=== PATIENT | female | born 1955 | race Caucasian/White ===

== ENCOUNTER → 2016-11-07 | Outpatient (CLI) | payer MEDICARE ==
[~2016-11-07] MED LIST: ASPIRIN CHEWABL81 MG PO; DEXILANT60 MG PO; DOK250 MG PO; FENOFIBRATE145 MG PO; HYDROCHLOROTHIA25 MG PO; KLONOPIN TAB 00.5 MG PO; LIPITOR40 MG PO; METFORMIN HCL500 MG PO; NORVASC 5 MG TAB5 MG PO; PLAVIX 75 MG TA75 MG PO; VITAMIN D250000 UNIT PO
== END ==
LOC: MAMO 13:05
DX: Z12.31 Encounter for screening mammogram for malignant neoplasm of breast (principal)
CPT/HCPCS: G0202

== ENCOUNTER → 2016-11-24 | Day surgery (SDC) | payer MEDICARE, SELFPAY | END | disposition home or self-care (01) | LOC: OR 06:58 | PROVIDERS: Internal Medicine Gastroenterology | PROC: 0DBP8ZZ Excision of Rectum, Via Natural or Artificial Opening Endoscopic (ICD-10-PCS; 2016-11-24) | PROC: 0DBE8ZX Excision of Large Intestine, Via Natural or Artificial Opening Endoscopic, Diagnostic (ICD-10-PCS; principal; 2016-11-24 10:30) | DX: Z12.11 Encounter for screening for malignant neoplasm of colon (principal); K62.1 Rectal polyp; K57.30 Diverticulosis of large intestine without perforation or abscess without bleeding; Z86.010 Personal history of colon polyps; I10 Essential (primary) hypertension; E11.9 Type 2 diabetes mellitus without complications; J44.9 Chronic obstructive pulmonary disease, unspecified; F17.210 Nicotine dependence, cigarettes, uncomplicated; Z90.49 Acquired absence of other specified parts of digestive tract; Z79.52 Long term (current) use of systemic steroids; Z79.82 Long term (current) use of aspirin; Z79.899 Other long term (current) drug therapy; Z90.710 Acquired absence of both cervix and uterus; Z95.5 Presence of coronary angioplasty implant and graft | CPT/HCPCS: 82962; J7030 ==

== ENCOUNTER → 2017-01-12 | Outpatient (CLI) | payer MEDICARE ==
[2017-01-12 10:29] LABS: HEMOGLOBIN 14.3 gm/dl (12.3-15.3); RED BLOOD COUNT 4.87 M/UL (4.00-5.10); WHITE BLOOD COUNT 17.8 K/UL (4.5-11.0)
[2017-01-12 10:39] LABS: BUN/CREATININE RATIO 27 (0-10)
== END ==
LOC: LAB 09:25
PROVIDERS: Family Medicine
DX: E11.9 Type 2 diabetes mellitus without complications (principal); R53.83 Other fatigue; E78.5 Hyperlipidemia, unspecified; I10 Essential (primary) hypertension; D51.3 Other dietary vitamin B12 deficiency anemia; D50.0 Iron deficiency anemia secondary to blood loss (chronic); E55.9 Vitamin D deficiency, unspecified; E87.5 Hyperkalemia
CPT/HCPCS: 36415; 80053; 82607; 82728; 82746; 83036; 83540; 83550; 84681; 85027

== ENCOUNTER → 2017-02-15 | Outpatient (CLI) | payer MEDICARE, SELFPAY | LOC: HEART 5 08:39 | DX: J44.9 Chronic obstructive pulmonary disease, unspecified (principal); R06.02 Shortness of breath | CPT/HCPCS: 94010 ==

== ENCOUNTER → 2020-10-19 | Outpatient (CLI) | payer MEDICARE ==
[~2020-10-19] MED LIST changes: +CETIRIZINE HCL10 MG PO; +FLOMAX0.4 MG PO; +K-DUR TAB 20 M20 MEQ PO; +MACROBID 100 M100 MG PO; +NORCO 5-325 TA1 EACH PO; +PREMARIN VAG CR30 GM EXT; +PYRIDIUM100 MG PO; +RESTASIS 0.05%1 EACH OD
[2020-10-19 10:47] LABS: HEMOGLOBIN 14.5 gm/dl (12.3-15.3); RED BLOOD COUNT 4.8 M/UL (4.00-5.10); WHITE BLOOD COUNT 11.1 K/UL (4.5-11.0)
[2020-10-19 11:16] LABS: BUN/CREATININE RATIO 18 (0-10)
== END ==
LOC: LAB 09:10
PROVIDERS: Family Medicine
DX: E78.5 Hyperlipidemia, unspecified (principal); E55.9 Vitamin D deficiency, unspecified; I10 Essential (primary) hypertension
CPT/HCPCS: 80053; 80061; 84439; 84443; 85027

== ENCOUNTER → 2020-11-19 | Outpatient (CLI) | payer MEDICARE, OTHER | LOC: LAB 12:43 | DX: L50.9 Urticaria, unspecified (principal); Z91.018 Allergy to other foods | CPT/HCPCS: 36415; 83655 ==

== ENCOUNTER → 2020-12-28 | Outpatient (CLI) | payer MEDICARE, OTHER | LOC: MAMO 12-25 10:00 → US 12-25 10:30 → MAMO 13:49 | DX: Z12.31 Encounter for screening mammogram for malignant neoplasm of breast (principal); R92.8 Other abnormal and inconclusive findings on diagnostic imaging of breast | CPT/HCPCS: 77063; 77067 ==

== ENCOUNTER → 2021-02-12 | Outpatient (CLI) | payer MEDICARE ==
[2021-02-12 09:51] LABS: HEMOGLOBIN 14.8 gm/dl (12.3-15.3); RED BLOOD COUNT 4.79 M/UL (4.00-5.10); WHITE BLOOD COUNT 14.9 K/UL (4.5-11.0)
[2021-02-14 20:10] LABS: HEMATOCRIT 41.8 % (34.0-46.6)
== END ==
LOC: LAB 08:43
PROVIDERS: Family Medicine
DX: R79.89 Other specified abnormal findings of blood chemistry (principal); N63.0 Unspecified lump in unspecified breast; R74.02 Elevation of levels of lactic acid dehydrogenase [LDH]; C85.90 Non-Hodgkin lymphoma, unspecified, unspecified site
CPT/HCPCS: 36415; 82728; 82747; 83540; 83550; 83615; 83921; 85025; 86900; 86901

== ENCOUNTER → 2021-06-25 | Outpatient (CLI) | payer MEDICARE | LOC: KOH-I 14:52 | DX: J44.9 Chronic obstructive pulmonary disease, unspecified (principal); C85.90 Non-Hodgkin lymphoma, unspecified, unspecified site; R93.89 Abnormal findings on diagnostic imaging of other specified body structures | CPT/HCPCS: 71250 ==

== ENCOUNTER → 2021-09-13 | Outpatient (CLI) | payer MEDICARE ==
[2021-09-13 10:42] LABS: HEMOGLOBIN 14.5 gm/dl (12.3-15.3); RED BLOOD COUNT 4.65 M/UL (4.00-5.10)
[2021-09-14 07:12] LABS: A/G RATIO 1.7 (1.2-2.2); ALKALINE PHOSPHATASE, S 66 IU/L (44-121); ALT (SGPT) 19 IU/L (0-32); AST (SGOT) 28 IU/L (0-40); BILIRUBIN, TOTAL 0.2 mg/dL (0.0-1.2); BUN 17 mg/dL (8-27); BUN/CREATININE RATIO 24 (12-28); CALCIUM, SERUM 9.8 mg/dL (8.7-10.3); CARBON DIOXIDE, TOTAL 20 mmol/L (20-29); CHLORIDE, SERUM 105 mmol/L (96-106); CHOLESTEROL, TOTAL 228 mg/dL (100-199); CREATININE, SERUM 0.71 mg/dL (0.57-1.00); EGFR IF AFRICN AM 103 (>59); EGFR IF NONAFRICN AM 90 (>59); GLOBULIN, TOTAL 2.6 g/dL (1.5-4.5); GLUCOSE, SERUM 105 mg/dL (65-99); HDL CHOLESTEROL 54 mg/dL (>39); LDL CHOLESTEROL CALC 132 mg/dL (0-99); LDL/HDL RATIO 2.4 ratio (0.0-3.2); POTASSIUM, SERUM 4.3 mmol/L (3.5-5.2); PROTEIN, TOTAL, SERUM 7.1 g/dL (6.0-8.5); SODIUM, SERUM 140 mmol/L (134-144); T. CHOL/HDL RATIO 4.2 ratio (0.0-4.4); TRIGLYCERIDES 237 mg/dL (0-149)
[2021-09-14 08:15] LABS: VITAMIN D, 25-HYDROXY 41.6 ng/mL (30.0-100.0)
[2021-09-14 11:15] LABS: C-PEPTIDE, SERUM 3.3 ng/mL (1.1-4.4)
== END ==
LOC: LAB 09:51
PROVIDERS: Family Medicine
DX: E11.9 Type 2 diabetes mellitus without complications (principal); E78.5 Hyperlipidemia, unspecified; I10 Essential (primary) hypertension; E55.9 Vitamin D deficiency, unspecified
CPT/HCPCS: 36415; 80053; 80061; 82043; 84439; 84443; 84681; 85027

== ENCOUNTER → 2021-10-07 | Day surgery (SDC) | payer MEDICARE ==
[~2021-10-07] MED LIST changes: +ALBUTEROL2.5 MG/3 M INH; +FEROSUL325 MG PO; +FLONASE 0.05% N16 GM; +MONTELUKAST SOD10 MG PO; +ZETIA10 MG PO
== END | disposition home or self-care (01) ==
LOC: OR 06:09
DX: Z12.89 Encounter for screening for malignant neoplasm of other sites (principal); Z12.11 Encounter for screening for malignant neoplasm of colon; K31.9 Disease of stomach and duodenum, unspecified; K21.9 Gastro-esophageal reflux disease without esophagitis; K44.9 Diaphragmatic hernia without obstruction or gangrene; J44.9 Chronic obstructive pulmonary disease, unspecified; E11.9 Type 2 diabetes mellitus without complications; I10 Essential (primary) hypertension; Z85.72 Personal history of non-Hodgkin lymphomas; Z72.0 Tobacco use; Z95.5 Presence of coronary angioplasty implant and graft; Z98.51 Tubal ligation status; Z90.710 Acquired absence of both cervix and uterus; Z20.822 Contact with and (suspected) exposure to COVID-19
CPT/HCPCS: J2704; J7040

== ENCOUNTER → 2021-12-27 | Outpatient (CLI) | payer MEDICARE | LOC: CT 10:35 | DX: K55.1 Chronic vascular disorders of intestine (principal); I10 Essential (primary) hypertension | CPT/HCPCS: 36415; 82565; 84520; Q9967 ==

== ENCOUNTER → 2022-03-10 | Day surgery (SDC) | payer MEDICARE, OTHER | END | disposition home or self-care (01) | LOC: OR 06:37 | DX: Z12.11 Encounter for screening for malignant neoplasm of colon (principal); K57.30 Diverticulosis of large intestine without perforation or abscess without bleeding; K62.3 Rectal prolapse; K64.1 Second degree hemorrhoids; I10 Essential (primary) hypertension; E11.9 Type 2 diabetes mellitus without complications; K21.9 Gastro-esophageal reflux disease without esophagitis; Z86.010 Personal history of colon polyps; Z79.82 Long term (current) use of aspirin; Z79.84 Long term (current) use of oral hypoglycemic drugs; Z79.02 Long term (current) use of antithrombotics/antiplatelets; Z79.899 Other long term (current) drug therapy | CPT/HCPCS: 82962; J2704; J7040 ==